=== PATIENT | female | born 1945 | race Hispanic/Latino ===

== ENCOUNTER 2025-04-25 15:25 | Emergency (ER) | payer OTHER, MEDICARE ==
[~2025-04-25] VITALS: Ht 157.5 cm; Wt 81.6 kg
--- NOTE | 2025-04-25 15:35 | ERN ---
ED Note History of Present Illness Stated Complaint: FALL Chief Complaint: Mechanical Fall Time Seen by MD: 15:28 Dictation: PATIENT IS A 80-YEAR-OLD FEMALE HERE WITH COMPLAINTS OF A SAME LEVEL TRIP FALL WHILE SHOPPING. SHE STATES SHE WAS WALKING OUT OF THE STORE WHEN SHE TRIPPED SHE LANDED ON HER RIGHT KNEE IN HIS ALSO HAVING SOME LEFT LATERAL ANKLE PAIN. SKIN IS INTACT THERE WAS NO HIP PAIN PELVIC PAIN NO SHORTENING OR ROTATION OF HER LEGS. SHE IS NOT ON ANY BLOOD THINNERS IN HIS NOT NO TRAUMA ALERT CRITERIA. Allergies: Coded Allergies: gabapentin (Unverified Allergy, Unknown, 04/25/25) hydrocodone (Unverified Allergy, Unknown, 04/25/25) lisinopril (Unverified Allergy, Unknown, 04/25/25) tramadol (Unverified Allergy, Unknown, 04/25/25) Past Medical History Past Medical History: High Cholesterol, Hypertension, Other Additional Past Medical Hx: RA Surgical History: None History: Not Applicable RN Note Reviewed/Agreed w/PFSH: Yes Review of System Dictation CONSTITUTIONAL: Negative except for HPI HEAD/FACE: Negative except for HPI EENT: Negative except for HPI RESPIRATORY: Negative except for HPI GASTROINTESTINAL/ABDOMINAL: Negative except for HPI GENITOURINARY: Negative except for HPI right kn left lateral ankle NEUROLOGICAL/PSYCH: Negative except for HPI HEMATOLOGIC/LYMPHATIC: Negative except for HPI All Systems Negative, Except as noted above. 13 point review of systems assessed and all negative except for above. Initial Vital Sign VS Vital Signs Date Time Temp Pulse Resp B/P (MAP) Pulse Ox O2 Delivery O2 Flow Rate FiO2 04/25/25 15:31 98.6 92 18 144/75 98 04/25/25 15:57 Room Air* 0 21 Physical Exam Dictation Vital Signs reviewed General Appearance: Alert, oriented x 3, mild acute distress, well developed, nourished. Head and Face: non-traumatic. No head trauma Eyes: PERRL, pink conjunctivas, eyelid no trauma, anterior chamber with arcus senilis. Ears: Pinnas intact and no signs of trauma or erythema ear canals clear and no discharge TM no erythema Nose: No discharge, no bleeding. Oropharynx: Mouth normal, tongue pink, pharynx clear,no erythema, tonsils no exudates, no abscesses noted, mucous membrane moist Neck: Supple, non-tender, no thyromegaly, no masses, no JVD, no bruits Breast:Deferred Chest:No tenderness, no crepitus, no paradoxical movement, no retractions Lungs:Clear, well-ventilated, symmetric, no rales, no wheezing, no rhonchi, no stridor, good breath sounds bilaterally Heart: Regular rate, regular rhythm, no murmur, no gallops Vascular: no peripheral edema, Abdomen: Soft, positive bowel sounds, nondistended, no guarding, nontender, no rebound, no masses no hepatomegaly, no splenomegaly, no Miller's sign, no hernias. Rectal: Deferred Genital: Deferred Neurological: Normal speech, motor function intact, sensory function intact Musculoskeletal: Neck nontender, full range of motion, back nontender, full range of motion, Extremities: Tenderness to diffuse right knee. Skin intact. No shortening or rotation of right leg. Mild tenderness to left lateral malleolar area. Skin is intact there was no swelling Skin: Color pink, dry, no turgor, no rash, no lacerations, no abrasions, no contusions. Lymphatic: Deferred Results (Laboratory/Radiology) Laboratory/Radiology CR Right Knee, 3 View CLINICAL HISTORY Knee pain status post fall COMPARISON None provided FINDINGS BONES No acute fracture or aggressive appearing osseous lesion is identified. There is prominent subchondral sclerosis involving the femorotibial and patellofemoral articulations. JOINTS There is severe osteoarthritis of the right knee with marked joint space narrowing, marginal osteophyte formation, and chondrocalcinosis of the medial and lateral menisci. A moderate knee joint effusion is present. SOFT TISSUES Periarticular soft tissue swelling and edema are noted about the right knee. No radiopaque foreign body or soft tissue gas is seen. IMPRESSION * Severe osteoarthritis of the right knee with meniscal chondrocalcinosis and prominent subchondral sclerosis. * Moderate right knee joint effusion with surrounding soft tissue edema, without acute fracture. /[place] PROCEDURE: [id number] - ANKLE COMP 3VWS LT EXAM CR Left Ankle, 3 View CLINICAL HISTORY Left lateral ankle pain status post fall COMPARISON None provided FINDINGS BONES No acute fracture or aggressive appearing osseous lesion is identified in the distal tibia, fibula, talus, or calcaneus. A plantar calcaneal spur is noted. JOINTS The ankle mortise is congruent. Joint spaces are preserved without dislocation or definite radiographic joint effusion. SOFT TISSUES Periarticular soft tissue swelling and edema are present about the left ankle, more pronounced laterally. No soft tissue gas or radiopaque foreign body is seen. IMPRESSION * Plantar calcaneal spur. * Soft tissue edema about the left ankle without acute fracture or dislocation. /Ea Labs Reviewed?: Yes ED Course ED Course Orders Procedure Category Date Status Time Acetaminophen 500mg PHA 04/25/25 Complete Tab (Tylenol 500mg T 16:00 Ankle Comp 3vws Lt RAD 04/25/25 Resulted 15:32 Knee 3vws Rt RAD 04/25/25 Resulted 15:32 Apply Ice Pack To: CPOE 04/25/25 Transmitted (Er) 15:32 Current Medications Medications (Trade) Dose Ordered Sig/Edward Route PRN Reason Start Time Stop Time Status Last Admin Dose Admin Acetaminophen (TYLenol 500MG TAB) 1,000 mg ONCE ONCE PO 04/25/25 16:00 04/25/25 16:01 DC 04/25/25 16:07 Vital Signs Date Time Temp Pulse Resp B/P (MAP) Pulse Ox O2 Delivery O2 Flow Rate FiO2 04/25/25 15:57 98.2 56 17 170/56 97 Room Air* 0 21 04/25/25 15:31 98.6 92 18 144/75 98 1635/x-rays of ankle and right knee demonstrate contusions only Full range of motion Skin intact. Medical Decision Making MDM Medical decision-making based on HPI and x-rays left ankle and right knee. X-rays negative except for mild swelling Osteoarthritis of right knee Discharged home to follow up with her doctor. DX & DISP Disposition: Discharge Departure Impression: Primary Impression: Contusion of right knee, initial encounter Additional Impressions: Contusion of left ankle, initial encounter, Right knee DJD, Fall Condition: Stable Scripts Acetaminophen (Tylenol) 500 Mg Tab 2 TAB PO [id number] PRN for pain or fever, #60 TAB 0 Refills Prov: YESENIA PARRISH POULTRY SLAUGHTERER 04/25/25 Additional Instructions: Follow-up with primary care provider in 1 to 2 days. Take medications as directed here in the emergency room. Okay to continue home medications unless otherwise discussed during your visit in the emergency room today. Return to your nearest emergency room if symptoms worsen or if there is no improvement. Call 911 if you need immediate assistance. Take Tylenol or Motrin [id number] as needed and if no contraindications are present. Increase oral hydration. A wound culture or urine culture was ordered here in the emergency room department please follow-up with primary care provider and advise them to get repeat ports from our facility. If you had any Anshu wrap/splints that were applied here, please do not remove them until you see your primary care or specialty. Cool compresses to pain three to 4 times a day. Take Tylenol as directed with food for pain. Diet and activity as tolerated. See your primary care doctor next week for referral and management Referrals: HARI FUENTES MD (PCP) Time of Disposition: 16:36 I have reviewed the case, and I agree with, Diagnosis and Plan YESENIA PARRISH POULTRY SLAUGHTERER Apr 25, 2025 15:35
--- NOTE | 2025-04-25 16:10 | HMCIMG ---
EXAM CR Left Ankle, 3 View CLINICAL HISTORY Left lateral ankle pain status post fall COMPARISON None provided FINDINGS BONES No acute fracture or aggressive appearing osseous lesion is identified in the distal tibia, fibula, talus, or calcaneus. A plantar calcaneal spur is noted. JOINTS The ankle mortise is congruent. Joint spaces are preserved without dislocation or definite radiographic joint effusion. SOFT TISSUES Periarticular soft tissue swelling and edema are present about the left ankle, more pronounced laterally. No soft tissue gas or radiopaque foreign body is seen. IMPRESSION * Plantar calcaneal spur. * Soft tissue edema about the left ankle without acute fracture or dislocation. /[place]
--- NOTE | 2025-04-25 16:11 | HMCIMG ---
EXAM CR Right Knee, 3 View CLINICAL HISTORY Knee pain status post fall COMPARISON None provided FINDINGS BONES No acute fracture or aggressive appearing osseous lesion is identified. There is prominent subchondral sclerosis involving the femorotibial and patellofemoral articulations. JOINTS There is severe osteoarthritis of the right knee with marked joint space narrowing, marginal osteophyte formation, and chondrocalcinosis of the medial and lateral menisci. A moderate knee joint effusion is present. SOFT TISSUES Periarticular soft tissue swelling and edema are noted about the right knee. No radiopaque foreign body or soft tissue gas is seen. IMPRESSION * Severe osteoarthritis of the right knee with meniscal chondrocalcinosis and prominent subchondral sclerosis. * Moderate right knee joint effusion with surrounding soft tissue edema, without acute fracture. /[place]
[2025-04-25] MEDS ORDERED: ACET-66 PO (16:37)
[2025-04-25 16:58] VITALS: BP 168/58; PULSE 56; RESP 17; TEMP 98.2; O2SAT 98
== END 2025-04-25 17:18 | disposition home or self-care (01) ==
LOC: EDH 15:25
DX: S80.01XA Contusion of right knee, initial encounter (principal); S90.02XA Contusion of left ankle, initial encounter; E78.00 Pure hypercholesterolemia, unspecified; I10 Essential (primary) hypertension; M17.11 Unilateral primary osteoarthritis, right knee; Z88.5 Allergy status to narcotic agent; Z88.8 Allergy status to other drugs, medicaments and biological substances; W01.0XXA Fall on same level from slipping, tripping and stumbling without subsequent striking against object, initial encounter; Y93.89 Activity, other specified; Y92.89 Other specified places as the place of occurrence of the external cause; Y99.8 Other external cause status
CPT/HCPCS: 73562; 73610; 99284